=== PATIENT | female | born 1985 | race Caucasian/White ===

== ENCOUNTER 2017-10-20 10:12 | Emergency (ER) | payer BC ==
[~2017-10-20] VITALS: Ht 152.4 cm; Wt 59.0 kg
[2017-10-20 10:14] VITALS: Ht 152.4 cm; Wt 59.0 kg
[2017-10-20 10:46] LABS: PLATELET COUNT 318 x10^3mcL (130-400); RED CELL DISTRIBUTION WIDTH 12.6 % (11.5-14.5)
[2017-10-20 10:50] LABS: BASOPHIL % 2.4 % (0-2)
[2017-10-20 10:58] LABS: CARBON DIOXIDE 24.4 mmol/L (21-32); CHLORIDE SERUM 103 mmol/L (98-107); CREATININE SERUM 0.6 mg/dL (0.6-1.0); GFR1 > 60 mL/min; GLUCOSE SERUM 136 mg/dL (74-106); SODIUM SERUM 137 mmol/L (136-145)
[2017-10-20 12:53] VITALS: BP 110/60
== END 2017-10-20 12:53 | disposition home or self-care (01) ==
LOC: ED 10:12
PROVIDERS: Emergency Medicine
DX: R07.9 Chest pain, unspecified (principal); R51 Headache; R20.0 Anesthesia of skin
CPT/HCPCS: 83880; J0780; J1200; J1885; J7030; Q0092